=== PATIENT | female | born 1995 | race American Indian/Alaskan Native ===

== ENCOUNTER 2020-04-19 11:13 | Emergency (ER) | payer SELFPAY ==
[2020-04-19 11:25] VITALS: BP 119/74
--- NOTE | 2020-04-19 11:40 | Emergency Department Report ---
Blank Doc - Documentation Documentation: 24-year-old female that presents with dizziness and body aches. Stated had last bowel movement 2 weeks ago. This initial assessment/diagnostic orders/clinical plan/treatment(s) is/are subject to change based on patient's health status, clinical progression and re- assessment by fellow clinical providers in the ED. Further treatment and workup at subsequent clinical providers discretion. Patient/guardians urged not to elope from the ED as their condition may be serious if not clinically assessed and managed. Initial orders include: 1- Patient sent to [facility] for further evaluation and treatment 2- labs 3- UA 4- XR abd
[2020-04-19 13:33] LABS: Basophils # (Auto) 0.1 K/mm3 (0.0-0.1); Basophils % (Auto) 0.7 % (0.0-1.8); Eosinophils # (Auto) 0.1 K/mm3 (0.0-0.4); Eosinophils % (Auto) 1.8 % (0.0-4.3); Hematocrit 42.4 % (30.3-42.9); Hemoglobin 13.7 gm/dl (10.1-14.3); Lymphocytes # (Auto) 2.1 K/mm3 (1.2-5.4); Mean Corpuscular HGB Conc 32 % (30-34); Mean Corpuscular Volume 91 fl (79-97); Monocytes # (Auto) 0.5 K/mm3 (0.0-0.8); Monocytes % (Auto) 7.2 % (0.0-7.3); Platelet Count 245 K/mm3 (140-440); Red Blood Count 4.67 M/mm3 (3.65-5.03); Red Cell Distribution Width 12.8 % (13.2-15.2)
[2020-04-19 13:47] LABS: Alanine Aminotransferase 14 units/L (7-56); Albumin 4.3 g/dL (3.9-5); Blood Urea Nitrogen 8 mg/dL (7-17); Calcium 9.3 mg/dL (8.4-10.2); Hemolysis Index 117
[2020-04-19 13:49] LABS: BUN/Creatinine Ratio 11
[2020-04-19 14:01] LABS: Bacteria,Urine 1+ /HPF (Negative); Bilirubin,Urine NEG (Negative); Blood,Urine LG (Negative); Color,Urine Red (Yellow); Mucus,Urine FEW /HPF; Urobilinogen,Urine < 2.0 mg/dL (<2.0)
[2020-04-19 14:04] LABS: HCG Qualitative,Urine Negative (Negative)
--- NOTE | 2020-04-19 15:50 | XRay Report ---
ABDOMEN 3 VIEW(S) INDICATION / CLINICAL INFORMATION: constipation. COMPARISON: None available. FINDINGS: TUBES / LINES: None. BOWEL GAS PATTERN: No significant abnormality. Small moderate stool throughout the colon. FREE AIR / EXTRALUMINAL GAS: None seen. ADDITIONAL FINDINGS: No significant additional findings. CHEST: Visualized chest shows no significant abnormality. IMPRESSION: Small-moderate stool throughout the colon, compatible with constipation. No acute process. Signer Name: Paul Goldstein MD Signed: 04/19/2020 3:46 PM Workstation Name: [id number]
--- NOTE | 2020-04-19 16:44 | Emergency Department Report ---
ED General Adult HPI - General Chief complaint: Pain General Stated complaint: WEAKNESS Time Seen by Provider: 04/19/20 11:38 Source: patient Mode of arrival: Ambulatory Limitations: No Limitations - History of Present Illness Initial comments: 24-year-old female presents to ED with complaint of body aches, lightheadedness, and constipation. Patient reports she has been constipated x2 weeks. She denies any abdominal pain. Patient reports body aches and lightheadedness have been going on for approximately 3 days. She denies any fever, nausea or v omiting, headache, decreased in appetite. Patient states she is mostly lightheaded when standing. She denies any previous Covid infection or known contact with anyone who has tested positive for COVID-19 -: days(s) (3) Improves with: immobilization Worsens with: movement Associated Symptoms: denies: chest pain, cough, fever/chills, headaches, loss of appetite, nausea/vomiting, shortness of breath, syncope - Related Data Previous Rx's Medication Instructions Recorded Last Taken Type Docusate Sodium [Colace CAP] 100 mg PO BID #30 capsule 04/19/20 Unknown Rx Sulfamethoxazole/Trimethoprim 1 each PO BID #6 tablet 04/19/20 Unknown Rx [Bactrim DS TAB] Allergies Allergy/AdvReac Type Severity Reaction Status Date / Time No Known Allergies Allergy Unverified 04/19/20 11:25 ED Review of Systems ROS: Stated complaint: WEAKNESS Other details as noted in HPI Comment: All other systems reviewed and negative Constitutional: denies: chills, fever Respiratory: denies: cough, shortness of breath Cardiovascular: denies: chest pain Gastrointestinal: constipation. denies: abdominal pain, nausea, vomiting, diarrhea Neurological: denies: headache ED Past Medical Hx - Past Medical History Previous Medical History?: Yes Additional medical history: ectopic - Surgical History Past Surgical History?: No - Social History Smoking Status: Never Smoker Substance Use Type: None - Medications Home Medications: Home Medications Medication Instructions Recorded Confirmed Last Taken Type Docusate Sodium [Colace CAP] 100 mg PO BID #30 capsule 04/19/20 Unknown Rx Sulfamethoxazole/Trimethoprim 1 each PO BID #6 tablet 04/19/20 Unknown Rx [Bactrim DS TAB] ED Physical Exam - General Limitations: No Limitations General appearance: alert, in no apparent distress - Head Head exam: Present: atraumatic, normocephalic - Eye Eye exam: Present: normal appearance, EOMI - ENT ENT exam: Present: mucous membranes moist - Neck Neck exam: Present: normal inspection - Respiratory Respiratory exam: Present: normal lung sounds bilaterally. Absent: respiratory distress - Cardiovascular Cardiovascular Exam: Present: regular rate, normal rhythm - GI/Abdominal GI/Abdominal exam: Present: soft. Absent: distended, tenderness - Extremities Exam Extremities exam: Present: normal inspection - Neurological Exam Neurological exam: Present: alert, oriented X3, CN II-XII intact. Absent: motor sensory deficit - Psychiatric Psychiatric exam: Present: normal affect, normal mood - Skin Skin exam: Present: warm, dry, intact, normal color ED Course Vital Signs 04/19/20 11:24 Temperature 98.0 F Pulse Rate 73 Respiratory 16 Rate Blood Pressure 119/74 O2 Sat by Pulse 100 Oximetry - Reevaluation(s) Reevaluation #1: 04/19/20 16:51 Pt REFUSING orthostatic vitals. States she needs to leave. ED Medical Decision Making - Lab Data Result diagrams: 04/19/20 13:11 04/19/20 13:11 - Radiology Data Radiology results: report reviewed, image reviewed - Medical Decision Making 24-year-old female presents to ED with complaint of constipation, body aches, lightheadedness. Initial set of vitals normal. Labs unremarkable, except for potassium of 5.3. computer systems technology instructor did report that there was some hemolysis present, so it is likely that potassium is normal as patient has normal renal function. Series showed evidence of constipation. UA showed possible UTI, however there were many epithelial cells present, it was not a great sample. Spoke with patient regarding obtaining another urine sample and orthostatic vital signs, however patient refuses. She states she needs to leave. Will treat as possible UTI with antibiotics. Outpatient follow-up advised. Return precautions given. - Differential Diagnosis Constipation, dehydration, electrolyte abnormality, Critical care attestation.: If time is entered above; I have spent that time in minutes in the direct care of this critically ill patient, excluding procedure time. ED Disposition Clinical Impression: Constipation, Lightheadedness, UTI (urinary tract infection) Disposition: TO HOME OR SELFCARE Is pt being admited?: No Condition: Stable Instructions: Constipation, Adult, Dizziness, [id number], Probiotics Prescriptions: Sulfamethoxazole/Trimethoprim [Bactrim DS TAB] 1 each PO BID #6 tablet Docusate Sodium [Colace CAP] 100 mg PO BID #30 capsule Referrals: DAYA HAYNES MD [Primary Care Provider] - 3-5 Days [facility] [Provider Group] - 3-5 Days Time of Disposition: 16:52
== END 2020-04-19 17:00 | disposition home or self-care (01) ==
LOC: ED 11:13
DX: N39.0 Urinary tract infection, site not specified (principal); R55 Syncope and collapse; K59.00 Constipation, unspecified; Z79.899 Other long term (current) drug therapy
CPT/HCPCS: 36415; 74022; 80053; 81001; 81025; 85025; 87086

== ENCOUNTER 2021-02-22 11:27 | Emergency (ER) | payer OTHER ==
[2021-02-22 12:59] VITALS: BP 100/44
--- NOTE | 2021-02-22 13:05 | Emergency Department Report ---
ED Abdominal Pain HPI - General Chief Complaint: Urogenital-Female Stated Complaint: PREG Time Seen by Provider: 02/22/21 12:59 Source: patient Mode of arrival: Ambulatory Limitations: No Limitations - Related Data Previous Rx's Medication Instructions Recorded Last Taken Type Docusate Sodium [Colace CAP] 100 mg PO BID #30 capsule 04/19/20 Unknown Rx Sulfamethoxazole/Trimethoprim 1 each PO BID #6 tablet 04/19/20 Unknown Rx [Bactrim DS TAB] Allergies Allergy/AdvReac Type Severity Reaction Status Date / Time No Known Allergies Allergy Unverified 04/19/20 11:25 ED Review of Systems ROS: Stated complaint: PREG Other details as noted in HPI ED Past Medical Hx - Past Medical History Previous Medical History?: Yes Additional medical history: ectopic - Surgical History Past Surgical History?: No - Social History Smoking Status: Never Smoker Substance Use Type: None - Medications Home Medications: Home Medications Medication Instructions Recorded Confirmed Last Taken Type Docusate Sodium [Colace CAP] 100 mg PO BID #30 capsule 04/19/20 Unknown Rx Sulfamethoxazole/Trimethoprim 1 each PO BID #6 tablet 04/19/20 Unknown Rx [Bactrim DS TAB] ED Physical Exam - General Limitations: No Limitations ED Course Vital Signs 02/22/21 12:55 Temperature 97.9 F Pulse Rate 67 Respiratory 16 Rate Blood Pressure 100/44 [Left] O2 Sat by Pulse 95 Oximetry - Reevaluation(s) Reevaluation #1: 02/22/21 13:05 Labs and ultrasound were ordered. Reevaluation #2: 02/22/21 15:48 Ultrasound was noted. ED Medical Decision Making - Lab Data Result diagrams: 02/22/21 14:31 - Medical Decision Making Patient presented with abdominal pain, positive test, and concern for ectopic. Based on ultrasound, she does not have an ectopic. She is never required RhoGam for her prior pregnancies. At this time, she does not have dysuria or frequency. I do not believe this represents urinary tract infection. Pain was left-sided which is the side she had her prior ectopic on. It would be unlikely to have appendicitis based on pain on the left side. She certainly does not appear to be in pain. I do not believe this represents ureteral colic. She was treated symptomatically and referred to her cable inspector. Critical care attestation.: If time is entered above; I have spent that time in minutes in the direct care of this critically ill patient, excluding procedure time. ED Disposition Clinical Impression: Abdominal pain affecting Disposition: 01 HOME / SELF CARE / HOMELESS Is pt being admited?: No Does the pt Need Aspirin: No Condition: Stable Instructions: Abdominal Pain During , [id number], Exercise During Additional Instructions: Drink plenty water. Use Tylenol for pain. Follow-up with your cable inspector for further testing and your test results. Avoid caffeine and ibuprofen.
--- NOTE | 2021-02-22 14:45 | Ultrasound Report ---
FIRSTTRIMESTER OBSTETRIC ULTRASOUND HISTORY: Spotting, abdominal pain, , history of left ectopic . COMPARISON: None. TECHNIQUE: Routine transabdominal and transvaginal OB ultrasound performed. FINDINGS: The uterus measures 8.8 x 4.3 x 5.7 cm. It contains a single intrauterine . The crown-rump l ength measures 6 mm which would equate to an estimated gestational age of 6 weeks and 3 days. Estimat ed due date is 10/19/2021. No evidence of subchorionic hemorrhage. Yolk sac and embryo are identified. Cardiac activity is detected at 130 bpm. The right ovary measures 4.6 x 4.1 x 2.9 cm. The left ovary measures 4.5 x 1.6 x 3.2 cm. Suspected ri ght ovarian corpus luteum cyst. Vascular flow is demonstrated to both ovaries. No free fluid within the visualized pelvis. IMPRESSION: Single live intrauterine with estimated gestational age of 6 weeks and 3 days. Signer Name: Carlo Richey MD Signed: 02/22/2021 2:40 PM Workstation Name: [id number]
[2021-02-22 15:24] LABS: Hemoglobin 13.6 gm/dl (10.1-14.3); Mean Corpuscular HGB Conc 33 % (30-34); Mean Corpuscular Volume 90 fl (79-97); Platelet Count 229 K/mm3 (140-440); Red Blood Count 4.57 M/mm3 (3.65-5.03); Red Cell Distribution Width 12.9 % (13.2-15.2)
== END 2021-02-22 16:02 | disposition home or self-care (01) ==
LOC: ED 11:27
DX: O26.891 Other specified pregnancy related conditions, first trimester (principal); R10.9 Unspecified abdominal pain; Z3A.01 Less than 8 weeks gestation of pregnancy
CPT/HCPCS: 36415; 76801; 76817; 84702; 85027; 99284

== ENCOUNTER 2021-11-23 11:55 | Emergency (ER) | payer OTHER ==
[2021-11-23 12:08] VITALS: BP 98/54
== END 2021-11-24 05:48 | disposition left against medical advice (07) ==
LOC: ED 11:55
DX: J02.9 Acute pharyngitis, unspecified (principal); R50.9 Fever, unspecified; Z53.21 Procedure and treatment not carried out due to patient leaving prior to being seen by health care provider
CPT/HCPCS: 87430